=== PATIENT | female | born 1965 | race Caucasian/White ===

== ENCOUNTER 2017-12-27 08:53 | Outpatient (CLI) | payer OTHER, SELFPAY ==
[2017-12-27 12:11] LABS: ALT 22 U/L (12-78); AST 21 U/L (15-37); Albumin 3.8 g/dL (3.4-5.0); Alkaline Phosphatase 91 U/L (46-116); Anion Gap 6.2 mmol/L (3-11); BUN 10 mg/dL (7-18); Bilirubin, Total 0.8 mg/dL (0.2-1.0); CO2 29.8 mmol/L (21.0-32.0); CREATININE 0.83 mg/dL (0.55-1.02); Calcium 8.6 mg/dL (8.5-10.1); Chloride 104 mmol/L (98-107); Cholesterol 171 mg/dL (50-200); Glucose 91 mg/dL (70-100); HDL Cholesterol 70 mg/dL (40-60); LDL CHOLESTEROL 72 mg/dL (<100); Potassium 4.4 mmol/L (3.5-5.1); Sodium 140 mmol/L (136-145); Total Protein 7.3 g/dL (6.4-8.2); Triglyceride 100 mg/dL (30-150)
== END 2017-12-27 09:13 ==
DX: Z00.00 Encounter for general adult medical examination without abnormal findings (principal); F41.9 Anxiety disorder, unspecified; Z13.220 Encounter for screening for lipoid disorders
CPT/HCPCS: 36415; 80053; 80061; 83721

== ENCOUNTER 2019-09-19 02:47 | Outpatient (CLI) | payer OTHER, SELFPAY ==
[2019-09-19 16:23] LABS: HCT 42.1 % (36.0-46.0); HGB 14.1 g/dL (12.0-15.5); Mean Corp. HGB Concentration 33.5 g/dL (32.0-36.0); Mean Corpuscular Hemoglobin 30.1 pg (27.0-33.0); Mean Platelet Volume 10.9 fL (8.0-11.0); Platelet Count 180 x1000/uL (130-400); RBC 4.68 m/cumm (4.00-5.20); RBC Distribution Width 13.2 % (11.7-14.6); White Blood Cell Count 5.24 k/cumm (4.4-10.8)
[2019-09-19 17:27] LABS: Alkaline Phosphatase 87 U/L (46-116); Anion Gap 5.9 mmol/L (3-11); BUN 11 mg/dL (7-18); CO2 31.1 mmol/L (21.0-32.0); CREATININE 1.01 mg/dL (0.55-1.02); Calcium 9.2 mg/dL (8.5-10.1); Chloride 102 mmol/L (98-107); Estimated GFR 57.12 (mL/min/1.73m2); Glucose 78 mg/dL (74-106); PHOSPHORUS 4.3 mg/dL (2.6-4.7); Potassium 4.5 mmol/L (3.5-5.1); Sodium 139 mmol/L (136-145)
[2019-09-21 04:24] LABS: Vitamin D 25 Total 34.8 ng/ml (30-100)
[2019-09-21 11:04] LABS: Parathyroid Hormone,Intact 97 pg/mL (19-88)
[2019-09-21 14:07] LABS: Albumin 58.9 % (55.8-66.1); Total Protein 7.4 g/dL (6.3-8.2)
== END 2019-09-19 03:07 ==
PROVIDERS: Visit Provider Internal Medicine Endocrinology, Diabetes & Metabolism
DX: M81.0 Age-related osteoporosis without current pathological fracture (principal)
CPT/HCPCS: 36415; 80048; 82306; 85027; 83970; 84075; 84100; 84165

== ENCOUNTER 2019-12-11 02:07 | Outpatient (CLI) | payer OTHER, SELFPAY ==
[2019-12-11 10:07] LABS: Calcium 9.4 mg/dL (8.5-10.1)
[2019-12-11 10:34] LABS: Vitamin D 25 Total 43.5 ng/ml (30-100)
[2019-12-12 11:04] LABS: Parathyroid Hormone,Intact 51 pg/mL (19-88)
== END 2019-12-11 02:27 ==
PROVIDERS: Visit Provider Internal Medicine Endocrinology, Diabetes & Metabolism
DX: M81.0 Age-related osteoporosis without current pathological fracture (principal)
CPT/HCPCS: 36415; 82306; 82040; 82310; 83970

== ENCOUNTER 2020-06-25 03:27 | Outpatient (CLI) | payer OTHER, SELFPAY ==
[2020-06-25 13:15] LABS: ALT 24 U/L (14-59); AST 17 U/L (15-37); Alkaline Phosphatase 80 U/L (46-116); Anion Gap 7.5 mmol/L (3-11); BUN 12 mg/dL (7-18); Bilirubin, Total 0.4 mg/dL (0.2-1.0); CO2 29.5 mmol/L (21.0-32.0); CREATININE 0.8 mg/dL (0.55-1.02); Calcium 9.3 mg/dL (8.5-10.1); Chloride 103 mmol/L (98-107); Glucose 96 mg/dL (74-106); Magnesium 1.9 mg/dL (1.8-2.4); Potassium 4.4 mmol/L (3.5-5.1); Sodium 140 mmol/L (136-145); Total Protein 7.3 g/dL (6.4-8.2)
== END 2020-06-25 03:28 | disposition home or self-care (01) ==
LOC: LOS 03:27
DX: Z00.00 Encounter for general adult medical examination without abnormal findings (principal); S16.1XXA Strain of muscle, fascia and tendon at neck level, initial encounter
CPT/HCPCS: 36415; 80053; 83735